=== PATIENT | male | born 1945 | race Caucasian/White ===

== ENCOUNTER → 2017-07-16 | Outpatient (CLI) | payer MEDICARE, OTHER ==
--- NOTE | 2017-07-16 14:47 | RADIOLOGY REPORT PS360 ---
US EXTREMITIES LT LIMITED HISTORY: MASS LEFT UPPER ARM ORDERING PHYSICIAN: Lydia Ramsey MD PATIENT AGE: 72 years COMPARISON: None FINDINGS: There are 2 left anterior shoulder masses one of which measures 9.4 x 9 cm and the other which measures 7 x 6 cm along the left humerus. These are slightly heterogeneous in echogenicity and may be related to lipomas. This may be confirmed with CT. These do not represent cysts and do not show significant increase in blood flow. 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
== END ==
LOC: RAD 12:46
DX: R22.32 Localized swelling, mass and lump, left upper limb (principal)